=== PATIENT | female | born 1955 | race Two or more races ===

== ENCOUNTER 2023-06-25 15:58 | Emergency (ER) | payer OTHER ==
[2023-06-25] MEDS ORDERED: oxyCODONE HCL 5 MG TABLET PO ONE (16:13)
[2023-06-25] MEDS ORDERED: oxyCODONE HCL 5 MG TABLET ONE (16:29)
[2023-06-25 16:30] VITALS: BP 153/82; PULSE 64; RESP 18; TEMP 97.8; BMI 39.9
[2023-06-25] MEDS ORDERED: diazePAM 2 MG TABLET PO ONE (16:31)
[2023-06-25] MEDS ORDERED: diazePAM 2 MG TABLET ONE (16:43)
== END 2023-06-25 18:49 | disposition home or self-care (01) ==
LOC: FER 15:58
CPT/HCPCS: 72125-TC; 72128-TC; 99284-25